=== PATIENT | male | born 2000 | race Caucasian/White ===

== ENCOUNTER 2022-11-23 14:05 | Emergency (ER) | payer SELFPAY ==
[~2022-11-23] VITALS: Ht 175.3 cm; Wt 77.1 kg
[2022-11-23] MEDS ORDERED: METHOCARBAMOL 500 MG TABLET PO ONE (17:15)
[2022-11-23] MEDS ORDERED: ACETAMINOPHEN 325 MG TABLET PO ONE (17:15)
[2022-11-23] MEDS ORDERED: METH-807 PO ×2 (17:58→18:55)
[2022-11-23] MEDS ORDERED: KETOROLAC TROMETHAMINE 30 MG INJ IM ONE (18:00)
[2022-11-23] MEDS ORDERED: METHOCARBAMOL 500 MG TABLET ONE ×2 (18:03→18:05)
[2022-11-23] MEDS ORDERED: ACETAMINOPHEN 325 MG TABLET ONE (18:03)
[2022-11-23] MEDS ORDERED: KETOROLAC TROMETHAMINE 30 MG INJ ONE (18:06)
[2022-11-23] MEDS ORDERED: IBUP-1955 PO (18:55)
[2022-11-23 20:20] VITALS: BP 140/70
--- NOTE | 2022-11-23 20:20 | NUR ---
Patient discharged to home in stable condition. Written and verbal after care instructions given. Patient verbalizes understanding of instructions. Stressed follow up or return to ER for worsening s/s.
== END 2022-11-23 20:21 | disposition home or self-care (01) ==
LOC: ER 14:05
DX: S06.0XAA Concussion with loss of consciousness status unknown, initial encounter (principal); R40.2363 Coma scale, best motor response, obeys commands, at hospital admission; R40.2143 Coma scale, eyes open, spontaneous, at hospital admission; R40.2253 Coma scale, best verbal response, oriented, at hospital admission; V43.52XA Car driver injured in collision with other type car in traffic accident, initial encounter; Y92.410 Unspecified street and highway as the place of occurrence of the external cause; M54.9 Dorsalgia, unspecified; M54.2 Cervicalgia; R03.0 Elevated blood-pressure reading, without diagnosis of hypertension
CPT/HCPCS: 99285; 70450; 71045; 93005; 72072; 72125; 96372; J1885; A4663